=== PATIENT | male | born 1990 | race Caucasian/White ===

== ENCOUNTER 2018-06-22 15:40 | Inpatient (IN) | payer OTHER ==
[~2018-06-22] VITALS: Ht 175.3 cm; Wt 63.2 kg
[2018-06-22] MEDS ORDERED: SODIUM CHLORIDE 0.9% 1,000 ML IV ONE (17:24)
[2018-06-22 18:12] LABS: HEMATOCRIT. 23.6 % (42.0-52.0); MEAN CORPUSCULAR HEMOGLOBIN 27.6 pg (28.0-32.0); MEAN CORPUSCULAR VOLUME 81.6 fL (80.0-94.0); MEAN PLATELET VOLUME 7.7 fl (7.4-10.4); PLATELET 333 x1000/uL (130-400); RED BLOOD CELL COUNT 2.89 mill/uL (4.7-6.1); RED CELL DISTRIBUTION WIDTH 15.2 % (11.6-14.6)
[2018-06-22 18:17] LABS: CHLORIDE 108 mEq/L (98-107)
[2018-06-22 18:18] LABS: CLARITY URINE CLEAR (CLEAR); COLOR URINE YELLOW (YELLOW); KETONES URINE NEGATIVE (NEGATIVE); LEUKOCYTE ESTERASE URINE NEGATIVE (NEGATIVE); NITRITE URINE NEGATIVE (NEGATIVE); OCCULT BLOOD URINE NEGATIVE (NEGATIVE); PH URINE 6.5 (4.5-8.0); PROTEIN URINE NEGATIVE (NEGATIVE); SPECIFIC GRAVITY URINE 1.006 (1.005-1.030); UROBILINOGEN URINE 0.2 E.U./dL (0.2-1.0)
[2018-06-22 18:19] LABS: PROTHROMBIN TIME 10.5 sec (9.6-11.0)
[2018-06-22 18:26] LABS: PLATELET ESTIMATE NORMAL
[2018-06-22] MEDS ORDERED: KETOROLAC 30MG/ML VIAL IV ONE (18:30)
[2018-06-22] MEDS ORDERED: ONDANSETRON HCL 4MG/2ML INJ IV ONE (18:30)
[2018-06-22] MEDS ORDERED: GUAIFENESIN 200MG/10ML SUGAR FREE UDC PO PRN (22:15)
[2018-06-22] MEDS ORDERED: ONDANSETRON HCL 4MG/2ML INJ IV PRN (22:15)
[2018-06-22] MEDS ORDERED: MAGNESIUM/ALUMINUM HYDROXIDE/SIMETHICONE 30ML UDC PO PRN (22:15)
[2018-06-22] MEDS ORDERED: HYDROCODONE/ACETAMINOPHEN 10/325MG TABLET PO PRN (22:15)
[2018-06-22] MEDS ORDERED: HYDROMORPHONE HCL/PF 2MG/ML CPJ IV PRN (22:15)
[2018-06-22] MEDS ORDERED: DIPHENHYDRAMINE 50MG/ML VIAL IV PRN (22:15)
[2018-06-22] MEDS ORDERED: CLONIDINE 0.1MG TABLET PO PRN (22:15)
[2018-06-22] MEDS ORDERED: LORAZEPAM 2MG/ML CPJ IV PRN (22:15)
[2018-06-22] MEDS ORDERED: ACETAMINOPHEN 325MG TABLET PO PRN (22:15)
[2018-06-22] MEDS ORDERED: HYDRALAZINE 20MG/ML VIAL IV PRN (22:15)
[2018-06-22] MEDS ORDERED: LEVOFLOXACIN 500MG PREMIX 100 ML IV SCH (22:15)
[2018-06-22] MEDS ORDERED: IPRATROPIUM/ALBUTEROL 0.5-3(2.5)MG/3ML NEB INH PRN (22:15)
[2018-06-22] MEDS ORDERED: DOCUSATE SODIUM 100MG CAPSULE PO PRN (22:15)
[2018-06-22 23:14] LABS: HEMATOCRIT 19.8 % (42.0-52.0); HEMOGLOBIN 6.7 g/dL (14.0-18.0)
[2018-06-23] VITALS (11 sets, daily range): BP systolic 100–110; BP diastolic 55–64
[2018-06-23] MEDS: LEVOFLOXACIN 500MG PREMIX 100 ML IV SCH (04:04)
[2018-06-23] MEDS ORDERED: USTEKINUMAB (04:20)
[2018-06-23] MEDS: SODIUM CHLORIDE 0.9% INJ 3ML FLUSH IVF SCH ×3 (05:26→21:53)
[2018-06-23] MEDS: METRONIDAZOLE 500 MG PREMIX 100 ML IV SCH ×3 (05:27→21:53)
[2018-06-23] MEDS ORDERED: METRONIDAZOLE 500 MG PREMIX 100 ML IV SCH (06:00)
[2018-06-23 06:44] LABS: CHLORIDE 110 mEq/L (98-107)
[2018-06-23 07:03] LABS: CREATINE KINASE 38 IU/L (39-308)
[2018-06-23 07:07] LABS: CREATINE KINASE MB FRACTION < 1.0 ng/mL (0.5-3.6)
[2018-06-23 07:09] LABS: MEAN CORPUSCULAR VOLUME 81.5 fL (80.0-94.0); MEAN PLATELET VOLUME 7.6 fl (7.4-10.4); PLATELET 259 x1000/uL (130-400); RED BLOOD CELL COUNT 2.49 mill/uL (4.7-6.1); RED CELL DISTRIBUTION WIDTH 15.2 % (11.6-14.6)
[2018-06-23 07:47] LABS: HEMATOCRIT. 20.3 % (42.0-52.0)
[2018-06-23 10:35] LABS: PLATELET ESTIMATE NORMAL
[2018-06-23 15:43] LABS: CREATINE KINASE 40 IU/L (39-308)
[2018-06-23 15:44] LABS: CREATINE KINASE MB FRACTION < 1.0 ng/mL (0.5-3.6)
[2018-06-23 18:41] LABS: HEMATOCRIT 23.1 % (42.0-52.0)
[2018-06-23] MEDS ORDERED: IOHEXOL-300 100 ML BOTTLE ONE (21:33)
[2018-06-23] MEDS: PANTOPRAZOLE SODIUM 40 MG/VIAL IV SCH (21:53)
[2018-06-24] VITALS (19 sets, daily range): BP systolic 94–118; BP diastolic 38–70
[2018-06-24] MEDS: LEVOFLOXACIN 500MG PREMIX 100 ML IV SCH (02:29)
[2018-06-24] MEDS: METRONIDAZOLE 500 MG PREMIX 100 ML IV SCH ×3 (06:33→21:01)
[2018-06-24] MEDS: SODIUM CHLORIDE 0.9% INJ 3ML FLUSH IVF SCH ×3 (06:33→21:01)
[2018-06-24] MEDS: PANTOPRAZOLE SODIUM 40 MG/VIAL IV SCH ×2 (09:06→21:00)
[2018-06-24 10:14] LABS: BASOPHILS % 0.5 % (0.0-2.0); EOSINOPHILS % 2.4 % (0.0-5.0); HEMATOCRIT. 22.8 % (42.0-52.0); HEMOGLOBIN. 7.9 g/dL (14.0-18.0); LYMPHOCYTES % 12.2 % (20.0-50.0); MEAN CORPUSCULAR HEMOGLOBIN 28.7 pg (28.0-32.0); MEAN CORPUSCULAR VOLUME 83.3 fL (80.0-94.0); MEAN PLATELET VOLUME 7.5 fl (7.4-10.4); MONOCYTES % 9.4 % (2.0-8.0); NEUTROPHILS % 75.5 % (40.0-76.0); PLATELET 266 x1000/uL (130-400); RED BLOOD CELL COUNT 2.74 mill/uL (4.7-6.1); RED CELL DISTRIBUTION WIDTH 15.5 % (11.6-14.6)
[2018-06-24 10:23] LABS: CHLORIDE 109 mEq/L (98-107)
[2018-06-24 10:30] LABS: C REACTIVE PROTEIN QUANT 6.7 mg/L (0.0-3.0); TOTAL IRON BINDING CAPACITY 153 ug/dL (250-450)
[2018-06-24] MEDS: IRON SUCROSE COMPLEX 100 MG/5 ML ML IV SCH (12:54)
[2018-06-24 19:37] LABS: HEMATOCRIT 25.5 % (42.0-52.0); HEMOGLOBIN 8.9 g/dL (14.0-18.0)
[2018-06-25] VITALS (12 sets, daily range): BP systolic 96–119; BP diastolic 51–65
[2018-06-25] MEDS: LEVOFLOXACIN 500MG PREMIX 100 ML IV SCH (01:12)
[2018-06-25] MEDS: METRONIDAZOLE 500MG TABLET PO SCH ×3 (05:34→22:00)
[2018-06-25] MEDS: SODIUM CHLORIDE 0.9% INJ 3ML FLUSH IVF SCH ×3 (05:34→22:09)
[2018-06-25 06:36] LABS: BASOPHILS % 0.4 % (0.0-2.0); EOSINOPHILS % 2.3 % (0.0-5.0); HEMATOCRIT. 24.7 % (42.0-52.0); HEMOGLOBIN. 8.6 g/dL (14.0-18.0); LYMPHOCYTES % 12.1 % (20.0-50.0); MEAN CORPUSCULAR HEMOGLOBIN 29.7 pg (28.0-32.0); MEAN PLATELET VOLUME 7.5 fl (7.4-10.4); MONOCYTES % 12.4 % (2.0-8.0); NEUTROPHILS % 72.8 % (40.0-76.0); PLATELET 273 x1000/uL (130-400); RED BLOOD CELL COUNT 2.91 mill/uL (4.7-6.1)
[2018-06-25 07:12] LABS: CHLORIDE 110 mEq/L (98-107)
[2018-06-25] MEDS: IRON SUCROSE COMPLEX 100 MG/5 ML ML IV SCH (08:53)
[2018-06-25] MEDS: PANTOPRAZOLE SODIUM 40 MG/VIAL IV SCH ×2 (08:53→22:09)
[2018-06-25] MEDS: METHYLPREDNISOLONE SOD SUCC 40 MG/ML VIAL IV SCH (18:15)
[2018-06-25] MEDS: LEVOFLOXACIN 500MG TABLET PO SCH (22:09)
[2018-06-25] MEDS: SUCRALFATE 1 G/10 ML UDC PO SCH (22:09)
[2018-06-26] MEDS: METHYLPREDNISOLONE SOD SUCC 40 MG/ML VIAL IV SCH ×3 (02:09→17:39)
[2018-06-26 02:11] VITALS: BP 104/57
[2018-06-26 04:00] VITALS: BP 102/60
[2018-06-26 05:29] LABS: HEMATOCRIT. 28.4 % (42.0-52.0); HEMOGLOBIN. 9.8 g/dL (14.0-18.0); MEAN CORPUSCULAR HEMOGLOBIN 29.6 pg (28.0-32.0); MEAN CORPUSCULAR VOLUME 86.1 fL (80.0-94.0); MEAN PLATELET VOLUME 7.7 fl (7.4-10.4); PLATELET 396 x1000/uL (130-400); RED BLOOD CELL COUNT 3.29 mill/uL (4.7-6.1); RED CELL DISTRIBUTION WIDTH 16.2 % (11.6-14.6)
[2018-06-26] MEDS: METRONIDAZOLE 500MG TABLET PO SCH ×3 (06:01→22:04)
[2018-06-26] MEDS: SODIUM CHLORIDE 0.9% INJ 3ML FLUSH IVF SCH ×3 (06:01→22:17)
[2018-06-26 06:08] LABS: CHLORIDE 108 mEq/L (98-107)
[2018-06-26 06:17] LABS: C REACTIVE PROTEIN QUANT 4.7 mg/L (0.0-3.0)
[2018-06-26 08:00] VITALS: BP 122/67
[2018-06-26] MEDS: SUCRALFATE 1 G/10 ML UDC PO SCH ×4 (08:12→22:04)
[2018-06-26] MEDS: IRON SUCROSE COMPLEX 100 MG/5 ML ML IV SCH (08:13)
[2018-06-26] MEDS: PANTOPRAZOLE SODIUM 40 MG/VIAL IV SCH ×2 (08:13→22:03)
[2018-06-26 10:00] LABS: PLATELET ESTIMATE NORMAL
[2018-06-26 12:00] VITALS: BP 114/60
[2018-06-26 16:00] VITALS: BP 109/61
[2018-06-26 20:00] VITALS: BP 114/62
[2018-06-26] MEDS: LEVOFLOXACIN 500MG TABLET PO SCH (22:04)
[2018-06-27] MEDS: METHYLPREDNISOLONE SOD SUCC 40 MG/ML VIAL IV SCH ×2 (02:32→09:32)
[2018-06-27 02:33] VITALS: BP 104/57
[2018-06-27] MEDS: SODIUM CHLORIDE 0.9% INJ 3ML FLUSH IVF SCH ×2 (05:44→13:27)
[2018-06-27] MEDS: METRONIDAZOLE 500MG TABLET PO SCH ×2 (05:44→13:26)
[2018-06-27 07:33] LABS: HEMATOCRIT. 30.2 % (42.0-52.0); HEMOGLOBIN. 10.1 g/dL (14.0-18.0); MEAN CORPUSCULAR HEMOGLOBIN 29.5 pg (28.0-32.0); MEAN CORPUSCULAR VOLUME 87.7 fL (80.0-94.0); MEAN PLATELET VOLUME 7.9 fl (7.4-10.4); PLATELET 488 x1000/uL (130-400); RED BLOOD CELL COUNT 3.44 mill/uL (4.7-6.1); RED CELL DISTRIBUTION WIDTH 16.5 % (11.6-14.6)
[2018-06-27 07:41] LABS: CHLORIDE 107 mEq/L (98-107)
[2018-06-27 08:00] VITALS: BP 112/59
[2018-06-27] MEDS: SUCRALFATE 1 G/10 ML UDC PO SCH ×3 (08:12→17:30)
[2018-06-27 08:29] LABS: PLATELET ESTIMATE INCREASED
[2018-06-27] MEDS: PANTOPRAZOLE SODIUM 40 MG/VIAL IV SCH (09:32)
[2018-06-27] MEDS: IRON SUCROSE COMPLEX 100 MG/5 ML ML IV SCH (09:32)
[2018-06-27 12:00] VITALS: BP 115/76
[2018-06-27 14:00] VITALS: BP 104/76
[2018-06-27 14:56] VITALS: BP 108/60
[2018-06-27 16:00] VITALS: BP 105/74
== END 2018-06-27 17:30 | disposition home or self-care (01) | DRG 386 ==
LOC: ER 15:40 → 7WST 21:11 → EDBEDREQ 21:14 → EDBEDREQTM 21:14 → ENRESERV 23:40 → 5EST 06-24 02:11
PROVIDERS: ADMIT Internal Medicine; ATTEND Internal Medicine
PROC: 30233N1 Transfusion of Nonautologous Red Blood Cells into Peripheral Vein, Percutaneous Approach (ICD-10-PCS; principal; 2018-06-24)
DX: K50.90 Crohn's disease, unspecified, without complications (principal); K92.2 Gastrointestinal hemorrhage, unspecified; E61.1 Iron deficiency; D64.9 Anemia, unspecified; I80.8 Phlebitis and thrombophlebitis of other sites; D72.829 Elevated white blood cell count, unspecified; T38.0X5A Adverse effect of glucocorticoids and synthetic analogues, initial encounter; Y92.89 Other specified places as the place of occurrence of the external cause; Z79.899 Other long term (current) drug therapy
CPT/HCPCS: 36415; 36430; 74178; 78278; 80048; 82550; 82553; 82728; 83540; 83550; 84484; 85014; 85018; 85044; 85651; 86140; 86850; 86900; 86920; 87015; 87045; 87427; 87449; 89055; 96365; 96375; 99291; A9560; C9113; J1885; J1956; J2405; J2920; J3490; J7030; J7040; J7050; P9016; Q9967